=== PATIENT | female | born 1970 | race Hispanic/Latino ===

== ENCOUNTER 2022-07-29 12:37 | Emergency (ER) | payer OTHER ==
[~2022-07-29] VITALS: Ht 157.5 cm; Wt 90.7 kg
[2022-07-29 13:20] VITALS: BP 111/74
[2022-07-29] MEDS ORDERED: CYCL10TA16 PO (13:21)
[2022-07-29] MEDS ORDERED: IBUP-2070 PO (13:21)
== END 2022-07-29 13:59 | disposition home or self-care (01) ==
LOC: EDH 12:37
DX: G44.209 Tension-type headache, unspecified, not intractable (principal)

== ENCOUNTER 2024-03-31 08:53 | Emergency (ER) | payer SELFPAY ==
[~2024-03-31] VITALS: Ht 160 cm; Wt 93.0 kg
[~2024-03-31 08:53] MED LIST: CYCL10TA16 PO; IBUP-2070 PO
[2024-03-31] MEDS ORDERED: BUTA-271 PO (11:54)
[2024-03-31] MEDS: CYCLOBENZAPRINE HCL 10 MG TABLET PO ONE (11:59)
[2024-03-31] MEDS: acetaMINOPHEN 500 MG TABLET PO ONE (11:59)
[2024-03-31 12:03] VITALS: BP 106/63; PULSE 73; RESP 17; TEMP 98.4; O2SAT 100
== END 2024-03-31 12:30 | disposition home or self-care (01) ==
LOC: EDH 08:53
DX: G44.209 Tension-type headache, unspecified, not intractable (principal); Z79.899 Other long term (current) drug therapy; Z90.49 Acquired absence of other specified parts of digestive tract; Z90.710 Acquired absence of both cervix and uterus
CPT/HCPCS: 70450